=== PATIENT | male | born 1965 | race Caucasian/White ===

== ENCOUNTER 2017-07-07 17:08 | Emergency (ER) | payer BC ==
[2017-07-07] MEDS ORDERED: DILT120C4 PO (17:23)
[2017-07-07] MEDS ORDERED: MELO-205 PO (17:23)
[2017-07-07] MEDS ORDERED: ESOM40CA42 PO (17:23)
[2017-07-07] MEDS ORDERED: LANI SUBQ (17:23)
[2017-07-07] MEDS ORDERED: ATOR40TA24 PO (17:23)
[2017-07-07] MEDS ORDERED: MIRA50TA PO (17:23)
[2017-07-07] MEDS ORDERED: INSU100V24 SQ (17:23)
[2017-07-07] MEDS ORDERED: ASPI-757 PO (17:23)
[2017-07-07] MEDS ORDERED: LOSA50TA72 PO (17:23)
--- NOTE | 2017-07-07 17:25 | ER Report ---
History and Physical Time Seen By MD: 17:24 Hx. of Stated Complaint: pt reports r upper rib pain after skiing HPI/ROS CHIEF COMPLAINT: Right rib pain HISTORY OF PRESENT ILLNESS: 51-year-old male patient presents to the emergency room with complaint of right rib pain. Patient states that he was skiing and the skis slipped out from underneath him and landed flat on his back. He states that since then he's been having pain. He states is worse with taking deep breath as well as movements. He states pain is actually located on the ribs lateral to his spine. He denies any numbness tingling, loss of bowel or bladder control. Patient states that he did take 3 Aleve for this prior to coming to the emergency room. Patient denies having any nausea, vomiting or diarrhea. Denies having neck pain or headache. REVIEW OF SYSTEMS: Respiratory: No cough, no dyspnea. Cardiovascular: No chest pain, no palpitations. Gastrointestinal: No vomiting, no abdominal pain. Musculoskeletal: As noted above Allergies: Coded Allergies: No Known Drug Allergies (Unverified , 07/07/17) Home Meds Active Scripts Hydrocodone Bit/Acetaminophen (HYDROCODON-ACETAMINOPHEN 5-325) 1 Each Tablet, 1 EACH PO Q4-6H Y for PAIN, #12 TAB Prov:PABLO GUZMANSSLaila KAY 07/07/17 Reported Medications Mirabegron (MYRBETRIQ) 50 Mg Tab.er.24h, 50 MG PO QDAY 07/07/17 Insulin Glargine (LANTUS) 100 Unit/Ml Soln, 28 UNIT SUBQ BEFORE BED, ML 07/07/17 Insulin Lispro (HUMALOG) 100 Unit/1 Ml Vial, 12 UNIT SQ AFTER MEAL, VIAL 07/07/17 Atorvastatin Calcium (LIPITOR) 40 Mg Tablet, 1 TAB PO QHS, TAB 07/07/17 Losartan Potassium (LOSARTAN POTASSIUM) 50 Mg Tablet, 50 MG PO QDAY 07/07/17 Diltiazem Hcl (DILTIAZEM ER) 120 Mg Capsule.er, 120 MG PO QDAY 07/07/17 Meloxicam (MELOXICAM) 7.5 Mg Tablet, 7.5 MG PO QDAY 07/07/17 Esomeprazole Magnesium (NEXIUM) 40 Mg Capsule.dr, 1 CAP PO QDAY, CAP 07/07/17 Aspirin (ASPIRIN) 325 Mg Tablet, 325 MG PO Q4-6H Y for PREVENTATIVE, TAB 07/07/17 Past Medical/Surgical History Patient has a past medical history of seizures, tachycardia, hypertension, hyperlipidemia, reflux, urinary frequency, urgency, diabetes. Patient has surgical history of a lateral, tunnel release, trigger finger release, right shoulder surgery. Reviewed Nurses Notes: Yes Constitutional Vital Sign - Last 24 Hours 07/07/17 07/07/17 07/07/17 07/07/17 17:13 17:14 17:15 17:28 Temp 97.9 Pulse 104 103 Resp 16 B/P (MAP) 176/91 (119) 176/91 167/93 (117) Pulse Ox 95 93 O2 Delivery Room Air 07/07/17 07/07/17 07/07/17 07/07/17 17:30 18:00 18:08 18:15 Pulse 101 B/P (MAP) 146/85 (105) 132/81 (98) 138/78 (98) Pulse Ox 93 07/07/17 07/07/17 07/07/17 07/07/17 18:28 18:30 18:45 18:48 Pulse 99 101 B/P (MAP) 141/86 (104) 139/84 (102) Pulse Ox 94 91 07/07/17 19:05 Pulse 88 Resp 16 B/P (MAP) 153/88 (109) Pulse Ox 92 O2 Delivery Room Air Physical Exam General Appearance: The patient is alert, has no immediate need for airway protection and no current signs of toxicity. Respiratory: Chest is non tender, lungs are clear to auscultation. Cardiac: regular rate and rhythm Gastrointestinal: Abdomen is soft and non tender, no masses, bowel sounds normal. Musculoskeletal: Neck: Neck is supple and non tender. Extremities have full range of motion and are non tender. Patient has tenderness to the back right side of ribs, no bruising noted. Patient has worsening pain with deep inspiration. Skin: No rashes or lesions. DIFFERENTIAL DIAGNOSIS: After history and physical exam differential diagnosis was considered for rib fracture, rib contusion, rib strain. Medical Decision Making EKG/Imaging Imaging Examination: CHEST PA AND LAT, RIBS RIGHT Comparison: None. History: right rib pain, fall skiing Findings: 2 views chest: No consolidation, nodule, or peribronchial inflammation. No pneumothorax, edema, or effusion. Cardiac and hilar contour size is within normal limits. Chronic appearing posttraumatic irregularities of the left posterior sixth, seventh, eighth, and ninth ribs. Visualized thoracic segments are unremarkable. 2 views right ribs: A BB is placed at the site of maximal pain. Right posterior seventh rib mildly displaced fracture. No acute osseous abnormality is identified. IMPRESSION: 1. Right posterior seventh rib mildly displaced fracture. 2. No evidence of acute cardiopulmonary disease. Report Dictated By: Anthony Marina MD at 07/07/2017 6:42 PM Report E-Signed By: Anthony Marina MD at 07/07/2017 6:45 PM ED Course/Re-evaluation ED Course Patient was admitted to the exam room, history and physical were obtained. Differential diagnoses were considered. On examination patient has tenderness to the right posterior ribs. A right rib series was done which showed a fracture of the right seventh rib. I discussed findings with the patient and his . We will go ahead and discharge him home at this time. He is to limit his activity by pain. He is to follow-up with his primary care provider in the next 2-3 weeks. We will prescribe him hydrocodone to help with pain. He states that if he is having severe pain and the son managed with ibuprofen or Aleve. I discussed this with the patient and his and they verbalized understanding and agreement with plan. Decision to Disposition Date: Jul 07, 2017 Decision to Disposition Time: 18:52 Depart Departure Latest Vital Signs Vital Signs Date Time Temp Pulse Resp B/P (MAP) Pulse Ox O2 Delivery O2 Flow Rate FiO2 07/07/17 19:05 88 16 153/88 (109) 92 Room Air 07/07/17 17:14 97.9 Impression: Primary Impression: Right rib fracture Condition: Improved Disposition: HOME OR SELF-CARE New Scripts Hydrocodone Bit/Acetaminophen (HYDROCODON-ACETAMINOPHEN 5-325) 1 Each Tablet 1 EACH PO Q4-6H Y for PAIN, #12 TAB Prov: JACQUELINE GUZMAN 07/07/17 Patient Instructions: Rib Fracture (ED) Additional Instructions: Limit activity by pain. Ice the area 2-3 times a day for 10-15 minutes. Get plenty of rest. Follow up with your primary care provider in the next 2-3 weeks. Return to the ER if condition worsens, shortness of breath, difficulty breathing or chest pain. You may take Ibuprofen in addition to the pain medication. Problem Qualifiers Primary Impression: Right rib fracture Encounter type: initial encounter Rib fracture type: single rib Fracture type: closed Qualified Codes: S22.31XA - Fracture of one rib, right side, initial encounter for closed fracture JACQUELINE GUZMAN Jul 07, 2017 17:25
--- NOTE | 2017-07-07 18:49 | RADIOLOGY IMAGING REPORT ---
FACILITY: [facility] [place] PATIENT NAME: Luis Mueller : 1965 MR: [id number] V: [id number] EXAM DATE: ORDERING PHYSICIAN: JACQUELINE GUZMAN TECHNOLOGIST: Location: [facility] Patient: Luis Mueller : 1965 Visit/Account:[id number] Date of Sevice: 07/07/2017 Examination: CHEST PA AND LAT, RIBS RIGHT Comparison: None. History: right rib pain, fall skiing Findings: 2 views chest: No consolidation, nodule, or peribronchial inflammation. No pneumothorax, edema, or ef fusion. Cardiac and hilar contour size is within normal limits. Chronic appearing posttraumatic irreg ularities of the left posterior sixth, seventh, eighth, and ninth ribs. Visualized thoracic segments are unremarkable. 2 views right ribs: A BB is placed at the site of maximal pain. Right posterior seventh rib mildly di splaced fracture. No acute osseous abnormality is identified. IMPRESSION: 1. Right posterior seventh rib mildly displaced fracture. 2. No evidence of acute cardiopulmonary disease. Report Dictated By: Anthony Marina MD at 07/07/2017 6:42 PM Report E-Signed By: Anthony Marina MD at 07/07/2017 6:45 PM WSN:[id number]
--- NOTE | 2017-07-07 18:49 | RADIOLOGY IMAGING REPORT ---
FACILITY: [facility] [place]IENT NAME: Luis Mueller : 1965 MR: [id number] V: [id number] EXAM DATE: ORDERING PHYSICIAN: JACQUELINE GUZMAN TECHNOLOGIST: Location: [facility] [place] Patient: Luis Mueller : 1965 Visit/Account:[id number] Date of Sevice: 07/07/2017 Examination: CHEST PA AND LAT, RIBS RIGHT Comparison: None. History: right rib pain, fall skiing Findings: 2 views chest: No consolidation, nodule, or peribronchial inflammation. No pneumothorax, edema, or ef fusion. Cardiac and hilar contour size is within normal limits. Chronic appearing posttraumatic irreg ularities of the left posterior sixth, seventh, eighth, and ninth ribs. Visualized thoracic segments are unremarkable. 2 views right ribs: A BB is placed at the site of maximal pain. Right posterior seventh rib mildly di splaced fracture. No acute osseous abnormality is identified. IMPRESSION: 1. Right posterior seventh rib mildly displaced fracture. 2. No evidence of acute cardiopulmonary disease. Report Dictated By: Anthony Marina MD at 07/07/2017 6:42 PM Report E-Signed By: Anthony Marina MD at 07/07/2017 6:45 PM WSN:[id number]
[2017-07-07] MEDS ORDERED: HYDR-385 PO (18:53)
[2017-07-07 19:05] VITALS: BP 153/88
[2017-07-07] MEDS ORDERED: ACET/HYDROC 5/325MG TH ER ONLY 2 TAB/BOTTLE PO ONE (19:10)
== END 2017-07-07 19:10 | disposition home or self-care (01) ==
LOC: ER 17:20
DX: S22.31XA Fracture of one rib, right side, initial encounter for closed fracture (principal); W00.0XXA Fall on same level due to ice and snow, initial encounter; Y93.23 Activity, snow (alpine) (downhill) skiing, snowboarding, sledding, tobogganing and snow tubing
CPT/HCPCS: 71046; 71100; 99282